=== PATIENT | male | born 1975 | race African-American/Black ===

== ENCOUNTER 2017-02-13 02:02 | Inpatient (IN) | payer OTHER ==
[~2017-02-13] VITALS: Ht 182.9 cm; Wt 87.0 kg
[2017-02-13] VITALS (15 sets, daily range): BP systolic 123–167; BP diastolic 71–104; PULSE 66–151; RESP 18–20; TEMP 98–98.6; O2SAT 97–99
[2017-02-13] MEDS ORDERED: SODIUM CHLOR 0.9% 1000 ML INJ 1,999 ML IV ONE (02:10)
[2017-02-13] MEDS ORDERED: SODIUM CHLOR 0.9% 1000 ML INJ 1,000 ML IV ONE (02:20)
--- NOTE | 2017-02-13 03:47 | RADRPT ---
EXAM DATE/TIME: 02/13/2017 00:00 [facility] COMPARISON: No previous studies available for comparison. INDICATIONS : Altered mental status. RADIATION DOSE: 46.60 CTDIvol (mGy) MEDICAL HISTORY : Unobtainable. SURGICAL HISTORY : Unobtainable. ENCOUNTER: Initial ACUITY: 1 day PAIN SCALE: 0/10 LOCATION: cranial TECHNIQUE: Multiple contiguous axial images were obtained of the head. Using automated exposure control and adj ustment of the mA and/or kV according to patient size, radiation dose was kept as low as reasonably a chievable to obtain optimal diagnostic quality images. FINDINGS: CEREBRUM: The ventricles are normal for age. No evidence of midline shift, mass lesion, hemorrhage or acute in farction. No extra-axial fluid collections are seen. POSTERIOR FOSSA: The cerebellum and brainstem are intact. The 4th ventricle is midline. The cerebellopontine angle i s unremarkable. EXTRACRANIAL: The visualized portion of the orbits is intact. SKULL: The calvaria is intact. No evidence of skull fracture. CONCLUSION: Normal examination. Panfilo Amato Jr., MD on February 13, 2017 at 3:44 Board Certified Radiologist. This report was verified electronically.
[2017-02-13 03:48] LABS: BASOPHIL # 0.1 TH/MM3 (0-0.2); BASOPHIL % 0.3 % (0.0-2.0); EOSINOPHIL # 0.2 TH/MM3 (0-0.4); EOSINOPHIL % 0.7 % (0.0-4.0); HEMATOCRIT 44.3 % (39.0-51.0); LYMPH % 2.1 % (9.0-44.0); LYMPHOCYTE # 0.6 TH/MM3 (1.0-4.8); MEAN CELL VOLUME 91.3 FL (80.0-100.0); MEAN CORPUSCULAR HEMOGLOBIN 30.6 PG (27.0-34.0); MEAN CORPUSCULAR HGB CONC 33.6 % (32.0-36.0); MONO % 5.3 % (0.0-8.0); NEUT % 91.6 % (16.0-70.0); PLATELET COUNT 326 TH/MM3 (150-450); RED BLOOD COUNT 4.85 MIL/MM3 (4.50-5.90); WHITE BLOOD COUNT 30.5 TH/MM3 (4.0-11.0)
--- NOTE | 2017-02-13 03:49 | RADRPT ---
EXAM DATE/TIME: 02/13/2017 03:02 [facility] COMPARISON: No previous studies available for comparison. INDICATIONS : Altered mental status. Weakness. MEDICAL HISTORY : None. SURGICAL HISTORY : None. ENCOUNTER: Initial ACUITY: 1 day PAIN SCORE: 6/10 LOCATION: Bilateral chest FINDINGS: A single view of the chest demonstrates the lungs to be symmetrically aerated without evidence of mas s, infiltrate or effusion. The cardiomediastinal contours are unremarkable. Osseous structures are intact. CONCLUSION: Normal examination. Panfilo Amato Jr., MD on February 13, 2017 at 3:47 Board Certified Radiologist. This report was verified electronically.
[2017-02-13 03:50] LABS: HEMO FLAGS AUTO DIFF
[2017-02-13 04:07] LABS: ALT (GPT) 42 U/L (12-78); ANION GAP 13 MEQ/L (5-15); AST (GOT) 36 U/L (15-37); BICARBONATE 20.6 MEQ/L (21.0-32.0); BLOOD UREA NITROGEN 19 MG/DL (7-18); CHLORIDE 106 MEQ/L (98-107); GLOMERULAR FILTRATION RATE 50 ML/MIN (>89); SODIUM (NA) 140 MEQ/L (136-145)
[2017-02-13 04:11] LABS: POTASSIUM 4.2 MEQ/L (3.5-5.1)
[2017-02-13 04:24] LABS: ALKALINE PHOSPHATASE 105 U/L (45-117); CREATINE KINASE 1248 U/L (39-308); TOTAL BILIRUBIN ADULT 0.3 MG/DL (0.2-1.0)
[2017-02-13] MEDS ORDERED: HYDROmorphone HCL PF 1 MG/ML VIAL IV PUSH ONE (04:30)
--- NOTE | 2017-02-13 04:32 | PD ---
HPI Chief Complaint: Medical Clearance Time Seen by Provider: 02:48 Travel History International Travel<30 days: No Contact w/Intl Traveler<30days: No Traveled to known affect area: No History of Present Illness HPI 41-year-old male arrives by EMS. He smoked an unknown drugs earlier in the day. He was at a traffic. He was approached by police and then an altercation ensued. While in retirement the patient became unresponsive and was brought here. Upon arrival here the heart rate was about 150 the blood pressure was 136/71. He complains of pain in his back and shoulders. It's worse with palpation. PFSH Past Medical History Medical History: Unable to Obtain Past Surgical History Surgical History: Unable to Obtain Social History Alcohol Use: Yes Tobacco Use: Yes Substance Use: Yes Allergies-Medications (Allergen,Severity, Reaction): Coded Allergies: Aspirin (Unverified Allergy, Severe, Heartburn, 02/13/17) Penicillin (Unverified Allergy, Severe, RASH, 02/13/17) Tylenol (Unverified Allergy, Severe, Heartburn, 02/13/17) Reported Meds & Prescriptions Reported Meds & Active Scripts Active No Active Prescriptions or Reported Medications Review of Systems Except as stated in HPI: all other systems reviewed are Neg General / Constitutional: No: Fever Musculoskeletal: Positive: Pain Physical Exam Narrative GENERAL: 41-year-old male well-nourished well-developed mild distress SKIN: Warm and dry. HEAD: Atraumatic. Normocephalic. EYES: Pupils equal and round. No scleral icterus. No injection or drainage. ENT: No nasal bleeding or discharge. Mucous membranes pink and moist. NECK: Trachea midline. No JVD. CARDIOVASCULAR: Regular rate and rhythm. RESPIRATORY: No accessory muscle use. Clear to auscultation. Breath sounds equal bilaterally. GASTROINTESTINAL: Abdomen soft, non-tender, nondistended. Hepatic and splenic margins not palpable. MUSCULOSKELETAL: Extremities without clubbing, cyanosis, or edema. No obvious deformities. Ecchymosis and swelling about the left lateral parathoracic musculature with overlying erythema. NEUROLOGICAL: Awake and alert. No obvious cranial nerve deficits. Motor grossly within normal limits. Five out of 5 muscle strength in the arms and legs. Normal speech. PSYCHIATRIC: Appropriate mood and affect; insight and judgment normal. Data Data Last Documented VS Vital Signs Date Time Temp Pulse Resp B/P Pulse Ox O2 Delivery O2 Flow Rate FiO2 02/13/17 03:04 99 Room Air 02/13/17 02:05 98.5 151 18 136/71 Vital signs reviewed Orders Sodium Chlor 0.9% 1000 Ml Inj (Ns 1000 M (02/13/17 02:20) Ct Brain W/O Iv Contrast(Rout) (02/13/17 ) Chest, Single Ap (02/13/17 ) Creatine Kinase (Cpk) (02/13/17 02:30) Comprehensive Metabolic Panel (02/13/17 02:30) Troponin I (02/13/17 02:30) Complete Blood Count With Diff (02/13/17 02:30) Hydromorphone Pf Inj (Dilaudid Pf Inj) (02/13/17 04:30) CKMB (02/13/17 02:30) CKMB% (02/13/17 02:30) Sodium Chlor 0.9% 1000 Ml Inj (Ns 1000 M (02/13/17 02:10) Urinalysis - C+S If Indicated (02/13/17 05:06) Drug Screen, Random Urine (02/13/17 05:06) Admit To Inpatient (02/13/17 ) Vital Signs (Adult) Q4H (02/13/17 05:06) Activity Oob With Assistance (02/13/17 05:06) Car Icer / Telemetry .CONTINUOUS (02/13/17 05:06) Intake + Output SELENE.QSHIFT (02/13/17 05:06) Diet Regular Basic (02/13/17 Breakfast) Sodium Chlor 0.9% 1000 Ml Inj (Ns 1000 M (02/13/17 05:06) Sodium Chloride 0.9% Flush (Ns Flush) (02/13/17 05:15) Sodium Chloride 0.9% Flush (Ns Flush) (02/13/17 09:00) Ondansetron Inj (Zofran Inj) (02/13/17 05:15) Bisacodyl Supp (Dulcolax Supp) (02/13/17 05:15) Comprehensive Metabolic Panel (02/14/17 06:00) Complete Blood Count With Diff (02/14/17 06:00) Creatine Kinase (Cpk) (02/13/17 08:00) Creatine Kinase (Cpk) (02/13/17 14:00) Troponin I (02/13/17 08:00) Troponin I (02/13/17 14:00) Scd Bilateral/Knee High SELENE.BID (02/13/17 05:06) Darci Bilateral/Knee High SELENE.QSHIFT (02/13/17 05:06) Morphine Inj (Morphine Inj) (02/13/17 05:15) Oxycodone (Roxicodone) (02/13/17 05:15) Inpatient Certification (02/13/17 ) Labs Laboratory Tests Test 02/13/17 02:30 White Blood Count 30.5 TH/MM3 Red Blood Count 4.85 MIL/MM3 Hemoglobin 14.9 GM/DL Hematocrit 44.3 % Mean Corpuscular Volume 91.3 FL Mean Corpuscular Hemoglobin 30.6 PG Mean Corpuscular Hemoglobin 33.6 % Concent Red Cell Distribution Width 14.0 % Platelet Count 326 TH/MM3 Mean Platelet Volume 8.6 FL Neutrophils (%) (Auto) 91.6 % Lymphocytes (%) (Auto) 2.1 % Monocytes (%) (Auto) 5.3 % Eosinophils (%) (Auto) 0.7 % Basophils (%) (Auto) 0.3 % Neutrophils # (Auto) 28.0 TH/MM3 Lymphocytes # (Auto) 0.6 TH/MM3 Monocytes # (Auto) 1.6 TH/MM3 Eosinophils # (Auto) 0.2 TH/MM3 Basophils # (Auto) 0.1 TH/MM3 CBC Comment AUTO DIFF Differential Total Cells 100 Counted Neutrophils % (Manual) 91 % Band Neutrophils % 1 % Lymphocytes % 4 % Monocytes % 2 % Neutrophils # (Manual) 28.7 TH/MM3 Metamyelocytes 2 % Nucleated Red Blood Cells 1 /100 WBC Differential Comment FINAL DIFF MANUAL Platelet Estimate NORMAL Platelet Morphology Comment NORMAL Sodium Level 140 MEQ/L Potassium Level 4.2 MEQ/L Chloride Level 106 MEQ/L Carbon Dioxide Level 20.6 MEQ/L Anion Gap 13 MEQ/L Blood Urea Nitrogen 19 MG/DL Creatinine 1.81 MG/DL Estimat Glomerular Filtration 50 ML/MIN Rate Random Glucose 82 MG/DL Calcium Level 9.5 MG/DL Total Bilirubin 0.3 MG/DL Aspartate Amino Transf 36 U/L (AST/SGOT) Alanine Aminotransferase 42 U/L (ALT/SGPT) Alkaline Phosphatase 105 U/L Total Creatine Kinase 1248 U/L Creatine Kinase MB 8.4 NG/ML Creatine Kinase MB % 0.7 % Troponin I 0.72 NG/ML Total Protein 8.2 GM/DL Albumin 4.1 GM/DL MDM Medical Decision Making Medical Screen Exam Complete: Yes Emergency Medical Condition: Yes Differential Diagnosis NSTEMI, unstable angina, coronary vasospasm, PE, PTX, aortic dissection, pericarditis, myocarditis, endocarditis, PNA, esophageal disease, aneurysm, musculoskeletal etiologies, anxiety, cocaine/sympathomimetic abuse Narrative Course CBC & BMP Diagram 02/13/17 02:30 Total creatinine kinase 1248 Troponin 0.72 EKG: Sinus tachycardia, HR 145 CXR: [facility] Head CT: No acute disease There is a elevation of troponin. The patient has elevated total creatinine kinase. Admission for serial enzymes and EKGs IV fluids. Discussed with Dr. Harrison. Diagnosis Primary Impression: Elevated troponin Additional Impression: Rhabdomyolysis Qualified Code: M62.82 - Non-traumatic rhabdomyolysis Admitting Information Admitting Physician Requests: Admit Scripts No Active Prescriptions or Reported Meds Scot Lowery MD Feb 13, 2017 04:32
[2017-02-13 04:39] LABS: CKMB 8.4 NG/ML (0.5-3.6)
[2017-02-13] MEDS ORDERED: SODIUM CHLORIDE 0.9% FLUSH 10 ML FLUSH IV FLUSH PRN (05:15)
[2017-02-13] MEDS ORDERED: ONDANSETRON HCL 4 MG/2 ML VIAL IVP PRN (05:15)
[2017-02-13] MEDS ORDERED: LORazepam 2 MG/ML VIAL IV PUSH PRN (05:15)
[2017-02-13] MEDS ORDERED: BISACODYL 10 MG SUPP PR PRN (05:15)
--- NOTE | 2017-02-13 05:22 | HHI.HP ---
[facility] Service [facility] Primary Care Physician No Primary Care Physician Admission Diagnosis Diagnoses: (1) Elevated troponin Diagnosis: Principal (2) Rhabdomyolysis Diagnosis: Principal (3) VALERIE (acute kidney injury) Diagnosis: Principal (4) Substance abuse Diagnosis: Principal Travel History International Travel<30 Days: No Contact w/Intl Traveler <30 Da: No Traveled to Known Affected Are: No History of Present Illness This is a 41-year-old male with no reported PMH was brought to the ER by EMS under Police Custody after becoming unresponsive while in [facility]. Per report, Police called as pt running into traffic, admitted to smoking unknown substance at approx 2200, was arrested and taken to [facility] at that time. While in [facility], pt had become unresponsive. Upon arrival, noted to be awake and alert, HR 150's, BP 136/71, O2 sat 99% on RA, Afebrile. Pt not cooperating with questions. WBC 30.5. Creatinine 1.81, no previous labs for comparison. CPK 1248. Troponin 0.72. EKG with no acute ischemia. CXR with no acute findings. CT Head negative. Review of Systems Except as stated in HPI: all other systems reviewed are Neg ROS: 14 point review of systems otherwise negative. Past Family Social History Past Medical History PMH: None Past Surgical History PAST SURGICAL HISTORY: Denies Allergies: Coded Allergies: Aspirin (Unverified Allergy, Severe, Heartburn, 02/13/17) Penicillin (Unverified Allergy, Severe, RASH, 02/13/17) Tylenol (Unverified Allergy, Severe, Heartburn, 02/13/17) Family History PAST FAMILY HISTORY: Reviewed. No h/o DM or CAD Social History PAST SOCIAL HISTORY: Positive for alcohol, unable to quantify. Positive for tobacco. Positive for substance abuse. Physical Exam Vital Signs Vital Signs Date Time Temp Pulse Resp B/P Pulse Ox O2 Delivery O2 Flow Rate FiO2 02/13/17 03:04 99 Room Air 02/13/17 02:05 98.5 151 18 136/71 99 Physical Exam PE: GENERAL: Middle-aged black male in no acute distress, sitting up at edge of stretcher. Police at bedside. Uncooperative with questions. HEENT: PERRLA, EOMI. No scleral icterus or conjunctival pallor. No lid lag or facial droop. CARDIOVASCULAR: Regular rate and rhythm. No obvious murmurs to auscultation. No chest tenderness to palpation. RESPIRATORY: No obvious rhonchi or wheezing. Clear to auscultation. Breath sounds equal bilaterally. GASTROINTESTINAL: Abdomen soft, non-tender, nondistended. BS normal. MUSCULOSKELETAL: Extremities without clubbing, cyanosis, or edema. No obvious deformities. NEUROLOGICAL: Awake, alert. No focal neurologic deficits. Moving both upper and lower extremities spontaneously. Laboratory Laboratory Tests Test 02/13/17 02:30 White Blood Count 30.5 Red Blood Count 4.85 Hemoglobin 14.9 Hematocrit 44.3 Mean Corpuscular Volume 91.3 Mean Corpuscular Hemoglobin 30.6 Mean Corpuscular Hemoglobin 33.6 Concent Red Cell Distribution Width 14.0 Platelet Count 326 Mean Platelet Volume 8.6 Neutrophils (%) (Auto) 91.6 Lymphocytes (%) (Auto) 2.1 Monocytes (%) (Auto) 5.3 Eosinophils (%) (Auto) 0.7 Basophils (%) (Auto) 0.3 Neutrophils # (Auto) 28.0 Lymphocytes # (Auto) 0.6 Monocytes # (Auto) 1.6 Eosinophils # (Auto) 0.2 Basophils # (Auto) 0.1 CBC Comment AUTO DIFF Sodium Level 140 Potassium Level 4.2 Chloride Level 106 Carbon Dioxide Level 20.6 Anion Gap 13 Blood Urea Nitrogen 19 Creatinine 1.81 Estimat Glomerular Filtration 50 Rate Random Glucose 82 Calcium Level 9.5 Total Bilirubin 0.3 Aspartate Amino Transf 36 (AST/SGOT) Alanine Aminotransferase 42 (ALT/SGPT) Alkaline Phosphatase 105 Total Creatine Kinase 1248 Creatine Kinase MB 8.4 Creatine Kinase MB % 0.7 Troponin I 0.72 Total Protein 8.2 Albumin 4.1 Result Diagram: 02/13/1722902/13/17229 Assessment and Plan Problem List: (1) Elevated troponin ICD Code: R74.8 Status: Acute (2) Rhabdomyolysis ICD Code: M62.82 Status: Acute (3) VALERIE (acute kidney injury) ICD Code: N17.9 Status: Acute (4) Substance abuse ICD Code: F19.10 Status: Acute Assessment and Plan A/P: 1. Elevated Trop: Trop 0.72, likely related to drug abuse, unlikely to be secondary to cardiac disease. Admit to [facility], telemetry, check serial trop. No ASA secondary to Allergy, no B-flor until Urine Drug Screen resulted. No c/ o chest pain. Ativan prn if needed. 2. Rhabdomyolysis: Likely related to drug abuse/dehydration. CPK 1248. Check U/a and Urine Drug Screen. IVF for hydration. Check serial CPK for trend. 3. VALERIE: Creatinine 1.80, no previous labs for comparison. U/a pending. IVF for hydration, repeat labs in am. 4. Substance Abuse: Pt uncooperative w/ questions, did admit to smoking unknown drug earlier this evening. Urine Drug Screen pending. Will follow. Ativan prn. 5. DVT Prophylaxis: SCD/Teds. 6. Social work for d/c planning as needed 7. Case discussed w/ ER physician at length. Physician Certification 2 Midnight Certification Type: Admission for Inpatient Services Order for Inpatient Services The services are ordered in accordance with Medicare regulations or non- Medicare payer requirements, as applicable. In the case of services not specified as inpatient-only, they are appropriately provided as inpatient services in accordance with the 2-midnight benchmark. Estimated LOS (days): 2 days is the estimated time the patient will need to remain in the hospital, assuming treatment plan goals are met and no additional complications. Post-Hospital Plan: Not yet determined Problem Qualifiers (1) Rhabdomyolysis: Qualified Code: M62.82 - Non-traumatic rhabdomyolysis Josette Harrison MD Feb 13, 2017 05:21
[2017-02-13] MEDS: SODIUM CHLOR 0.9% 1000 ML INJ 1,000 ML IV SCH ×3 (06:03→18:26)
[2017-02-13 06:44] LABS: BANDS 1 % (0-6); CORRECTED NUCLEATED RBC 1 /100 WBC (0-0); METAMYELOCYTES 2 % (0-1); NEUTROPHIL # MANUAL DIFF 28.7 TH/MM3 (1.8-7.7); POLYS (SEG NEUTROPHILS) 91 % (16-70); WBC DIFF SAMPLE 100
[2017-02-13 06:45] LABS: PLATELET ESTIMATE SMEAR NORMAL (NORMAL); PLATELET MORPHOLOGY NORMAL (NORMAL); SCAN/DIFF FINAL DIFF MANUAL
[2017-02-13 07:20] LABS: GLUCOSE,URINE NEG (NEG); KETONE, URINE NEG (NEG); PH, URINE 5.5 (5.0-8.5); URINE COLOR LIGHT-YELLOW (YELLW/STRAW)
[2017-02-13 07:21] LABS: BLOOD, URINE LARGE (NEG); COMMENT (UR) CULT NOT INDICATED; CULTURE IF INDICATED CULT NOT INDICATED; MUCUS URINE FEW /lpf (OCC); NITRITE,URINE NEG (NEG); SQUAMOUS EPITHELIAL CELL URINE <1 /hpf (0-5)
[2017-02-13 07:37] LABS: AMPHETAMINE, URINE NEG (NEG); BARBITURATES, URINE NEG (NEG); COCAINE, URINE NEG (NEG)
[2017-02-13] MEDS: SODIUM CHLORIDE 0.9% FLUSH 10 ML FLUSH IV FLUSH SCH ×2 (09:00→21:00)
[2017-02-13 11:33] LABS: CKMB 182.2 NG/ML (0.5-3.6)
--- NOTE | 2017-02-13 13:44 | MB ---
cc: CHLOE OCAMPO DATE OF CONSULTATION: 02/13/2017. HISTORY OF PRESENT ILLNESS: Mr. Haddad is a 41-year-old black male with a history of substance abuse. He was brought by the police after he became unresponsive in long term. He was arrested after he was running into traffic. He stated he was smoking an unknown substance last night. He became unresponsive in long term. His troponin is mildly elevated. His EKG was unremarkable. His CT of the head was negative. He complains of mild left parasternal atypical chest discomfort and mild shortness of breath. PAST MEDICAL HISTORY: His past medical history is negative for hypertension, dyslipidemia, diabetes mellitus, or coronary artery disease. MEDICATIONS: None. ALLERGIES: 1. PENICILLIN. 2. ASPIRIN. 3. TYLENOL. SOCIAL HISTORY: The patient is a smoker. He uses drugs. He also drinks alcohol. FAMILY HISTORY: Family history is negative for heart disease. REVIEW OF SYSTEMS: The review of systems is otherwise negative. PHYSICAL EXAMINATION: VITAL SIGNS: Blood pressure 161/83, pulse 87 and regular. HEAD, EYES, EARS, NOSE, THROAT: Negative. NECK: 2+ carotid upstrokes, no bruits. LUNGS: Clear. HEART: Regular with no murmurs, rubs or gallops. ABDOMEN: Abdomen soft. No bruits. EXTREMITIES: Without edema. 2+ distal pulses. NEUROLOGIC: Grossly intact. EKGS: EKG was reviewed and showed sinus tachycardia, pulsus alternans, incomplete right bundle-branch block, small inferior T-waves and no acute S-T-T changes. LABS: Hemoglobin 14.9. Potassium 4.2. Creatinine 1.8. CK 1248 and 16,198. Troponin 0.72, 1.31. CK-MB index 0.7 and 1.1. DIAGNOSIS: 1. Altered mental status. 2. Drug abuse. 3. Mildly abnormal troponin. 4. Atypical chest pain. 5. Rhabdomyolysis. 6. Acute kidney injury. 7. Smoking. DISPOSITION: 1. Mr. Haddad will be monitored on telemetry. 2. We will obtain echocardiogram to evaluate his left ventricular function. 3. We will monitor his renal function. 4. We will obtain serial enzymes and EKGs. I will follow him for cardiology during his hospitalization. MD SLADE Cevallos/TRISTEN /1:14 PM /1:30 PM SHAAN
[2017-02-13] MEDS: MORPHINE SULFATE 4 MG/ML INJ IV PRN (14:24)
--- NOTE | 2017-02-13 15:36 | EKG ---
Date Performed: 02/13/2017 Time Performed: 02:12:05 PTAGE: 41 years EKG: SINUS TACHYCARDIA, POSSIBLE ATRIAL FLUTTER BORDERLINE RIGHT AXIS DEVIATION INCOMPLETE RIGHT BUNDLE BRANCH BLOCK ABNORMAL RHYTHM ECG PREVIOUS TRACING : 02/05/2017 18.44 DOCTOR: Zaheer Dale Interpretating Date/Time 02/13/2017 15:36:04
[2017-02-13 18:08] LABS: CKMB 196.8 NG/ML (0.5-3.6)
[2017-02-14] VITALS (26 sets, daily range): BP systolic 130–162; BP diastolic 52–98; PULSE 60–80; RESP 17–19; TEMP 97.6–98.9; O2SAT 95–99
[2017-02-14] MEDS: MORPHINE SULFATE 4 MG/ML INJ IV PRN (00:53)
[2017-02-14] MEDS: SODIUM CHLOR 0.9% 1000 ML INJ 1,000 ML IV SCH ×4 (01:06→20:13)
[2017-02-14 05:12] LABS: AUTOMATED NEUTROPHIL # 8.6 TH/MM3 (1.8-7.7); BASOPHIL # 0.1 TH/MM3 (0-0.2); BASOPHIL % 0.4 % (0.0-2.0); EOSINOPHIL # 0.7 TH/MM3 (0-0.4); EOSINOPHIL % 5.5 % (0.0-4.0); HEMATOCRIT 38.2 % (39.0-51.0); HEMO FLAGS DIFF FINAL; LYMPH % 18.3 % (9.0-44.0); LYMPHOCYTE # 2.4 TH/MM3 (1.0-4.8); MEAN CELL VOLUME 90.3 FL (80.0-100.0); MEAN CORPUSCULAR HEMOGLOBIN 30.6 PG (27.0-34.0); MEAN CORPUSCULAR HGB CONC 33.8 % (32.0-36.0); MONO % 9.9 % (0.0-8.0); NEUT % 65.9 % (16.0-70.0); PLATELET COUNT 261 TH/MM3 (150-450); RED BLOOD COUNT 4.23 MIL/MM3 (4.50-5.90); RED CELL DISTRIBUTION WIDTH 13.8 % (11.6-17.2); WHITE BLOOD COUNT 13.1 TH/MM3 (4.0-11.0)
[2017-02-14 05:25] LABS: ALKALINE PHOSPHATASE 65 U/L (45-117); ALT (GPT) 121 U/L (12-78); ANION GAP 10 MEQ/L (5-15); AST (GOT) 347 U/L (15-37); BICARBONATE 28.4 MEQ/L (21.0-32.0); BLOOD UREA NITROGEN 11 MG/DL (7-18); CHLORIDE 105 MEQ/L (98-107); GLOMERULAR FILTRATION RATE 106 ML/MIN (>89); POTASSIUM 3.4 MEQ/L (3.5-5.1); SODIUM (NA) 143 MEQ/L (136-145); TOTAL BILIRUBIN ADULT 0.4 MG/DL (0.2-1.0)
--- NOTE | 2017-02-14 07:38 | HHI.PR ---
Subjective Remarks Complaints of muscle tenderness bilateral shoulders. No chest pain. No n/v/d/c. Denies sob, lightheadedness, nausea, diaphoresis. Objective Vitals Vital Signs Date Time Temp Pulse Resp B/P Pulse Ox O2 Delivery O2 Flow Rate FiO2 02/14/17 06:23 66 02/14/17 05:00 66 02/14/17 04:00 64 02/14/17 03:00 97.9 64 18 135/52 99 02/14/17 03:00 62 02/14/17 02:00 64 02/14/17 01:00 68 02/14/17 00:00 66 02/13/17 23:00 78 02/13/17 22:00 84 02/13/17 21:00 76 02/13/17 20:00 98.0 77 18 123/83 99 02/13/17 20:00 76 02/13/17 19:00 70 02/13/17 16:00 66 02/13/17 15:00 73 02/13/17 15:00 98.6 82 20 139/89 98 02/13/17 15:00 18 02/13/17 14:00 84 02/13/17 13:00 78 02/13/17 12:00 82 02/13/17 11:00 98.4 87 20 161/83 98 02/13/17 11:00 84 02/13/17 10:00 88 02/13/17 10:00 94 02/13/17 08:45 98.2 93 20 157/104 02/13/17 08:12 98.0 97 18 167/88 97 Room Air 02/13/17 08:12 96 97 Room Air I/O 02/13/17 02/13/17 02/13/17 02/14/17 02/14/17 02/14/17 06:59 14:59 22:59 06:59 14:59 22:59 Intake Total 700 ml Balance 700 ml Intake Oral 700 ml IV Total 0 ml # Voids 4 # Bowel Movements 0 Result Diagram: 02/14/17 0443 02/14/17 0443 Imaging Last Impressions Head CT 02/13/17 0000 Signed Impressions: Service Date/Time: Monday, February 13, 2017 00:00 - CONCLUSION: Normal examination. Panfilo Amtao Jr., MD Chest X-Ray 02/13/17 0000 Signed Impressions: Service Date/Time: Monday, February 13, 2017 03:02 - CONCLUSION: Normal examination. Panfilo Amato Jr., MD Objective Remarks GENERAL: Middle-aged AA male in no acute distress, well nourished, well developed. HEENT: PERRLA, EOMI. No scleral icterus or conjunctival pallor. No lid lag or facial droop. CARDIOVASCULAR: Regular rate and rhythm. No obvious murmurs to auscultation. No chest tenderness to palpation. RESPIRATORY: No obvious rhonchi or wheezing. Clear to auscultation. Breath sounds equal bilaterally. GASTROINTESTINAL: Abdomen soft, non-tender, nondistended. BS normal. MUSCULOSKELETAL: BL shoulder pain, decreased ROM bilateral shoulders. Extremities without clubbing, cyanosis, or edema. No obvious deformities. NEUROLOGICAL: Awake, alert. No focal neurologic deficits. Moving both upper and lower extremities spontaneously. A/P Problem List: (1) Elevated troponin ICD Code: R74.8 Status: Acute (2) Rhabdomyolysis ICD Code: M62.82 Status: Acute (3) VALERIE (acute kidney injury) ICD Code: N17.9 Status: Acute (4) Substance abuse ICD Code: F19.10 Status: Acute Assessment and Plan Elevated Trop: Trop 0.72, likely related to drug abuse, unlikely to be secondary to cardiac disease. Admit to [facility], telemetry, check serial trop. No c/o chest pain. Ativan prn if needed. Consult cardiology seen by Dr Clark appreciate recommendations. Plan for 2D ECHO Rhabdomyolysis: Likely related to drug abuse/dehydration. CPK 1248. Check U/ a and Urine Drug Screen. IVF for hydration. Check serial CPK for trend. Troponins trending up, however CKMB ration is normal, likely replated to rhabdo , will ask cardiology for evaluation and clearance Bilateral shoulder pain, decreased ROM will do X rays. Will consult OT. VALERIE: Creatinine 1.80 on admission, no previous labs for comparison. U/A no signs of infection. IVF for hydration, repeat labs in am. Substance Abuse: Pt uncooperative w/ questions, did admit to smoking unknown drug BENDING ROLL HAND. Urine Drug Screen + marijuana. Ativan prn. DVT Prophylaxis: SCD/Teds. Case management for d/c planning as needed Discussed with the patient, nurse Problem Qualifiers (1) Rhabdomyolysis: Qualified Code: M62.82 - Non-traumatic rhabdomyolysis Vy Shah MD Feb 14, 2017 07:38
[2017-02-14] MEDS: SODIUM CHLORIDE 0.9% FLUSH 10 ML FLUSH IV FLUSH SCH ×2 (08:13→20:12)
[2017-02-14 08:51] LABS: CKMB 87.7 NG/ML (0.5-3.6)
[2017-02-14] MEDS ORDERED: POTASSIUM CHLORIDE 10 MEQ CONTROLLED RELEASE TAB PO ONE (09:30)
--- NOTE | 2017-02-14 13:47 | PD.CARD.PN ---
Subjective Subjective Remarks No CP or SOB, c/o bilateral shoulder pain Objective Medications Current Medications Medications (Trade) Dose Ordered Sig/Mo Route Start Time Stop Time Status Last Admin (NS 1000 ml Inj) 1,000 ml @ 150 mls/hr Q6H40M IV 02/13/17 05:06 02/14/17 09:54 (NS Flush) 2 ml UNSCH PRN IV FLUSH 02/13/17 05:15 (NS Flush) 2 ml BID IV FLUSH 02/13/17 09:00 02/13/17 21:00 (Zofran Inj) 4 mg Q6H PRN IVP 02/13/17 05:15 02/13/17 14:23 (Dulcolax Supp) 10 mg DAILY PRN MO 02/13/17 05:15 (Morphine Inj) 1 mg Q3H PRN IV 02/13/17 05:15 02/14/17 00:53 (Roxicodone) 5 mg Q4H PRN PO 02/13/17 05:15 02/14/17 11:12 (Ativan Inj) 1 mg Q2H PRN IV PUSH 02/13/17 05:15 Vital Signs / I&O Vital Signs Date Time Temp Pulse Resp B/P Pulse Ox O2 Delivery O2 Flow Rate FiO2 02/14/17 10:00 138/83 02/14/17 07:00 98.3 73 19 162/98 95 02/14/17 06:23 66 02/14/17 05:00 66 02/14/17 04:00 64 02/14/17 03:00 97.9 64 18 135/52 99 02/14/17 03:00 62 02/14/17 02:00 64 02/14/17 01:00 68 02/14/17 00:00 66 02/13/17 23:00 78 02/13/17 22:00 84 02/13/17 21:00 76 02/13/17 20:00 98.0 77 18 123/83 99 02/13/17 20:00 76 02/13/17 19:00 70 02/13/17 16:00 66 02/13/17 15:00 73 02/13/17 15:00 98.6 82 20 139/89 98 02/13/17 15:00 18 02/13/17 14:00 84 I/O 02/13/17 02/13/17 02/13/17 02/14/17 02/14/17 02/14/17 07:00 15:00 23:00 07:00 15:00 23:00 Intake Total 700 ml Balance 700 ml Intake Oral 700 ml IV Total 0 ml # Voids 4 # Bowel Movements 0 Physical Exam GENERAL: SKIN: Warm and dry. HEAD: Normocephalic. EYES: No scleral icterus. No injection or drainage. NECK: Supple, trachea midline. No JVD or lymphadenopathy. CARDIOVASCULAR: Regular rate and rhythm without murmurs, gallops, or rubs. RESPIRATORY: Breath sounds equal bilaterally. No accessory muscle use. GASTROINTESTINAL: Abdomen soft, non-tender, nondistended. MUSCULOSKELETAL: No cyanosis, or edema. BACK: Nontender without obvious deformity. No CVA tenderness. Laboratory Laboratory Tests Test 02/13/17 02/14/17 15:11 04:43 Total Creatine Kinase 16136 U/L 12378 U/L Creatine Kinase MB 196.8 NG/ML 87.7 NG/ML Creatine Kinase MB % 0.7 % 0.5 % Troponin I 0.91 NG/ML White Blood Count 13.1 TH/MM3 Red Blood Count 4.23 MIL/MM3 Hemoglobin 12.9 GM/DL Hematocrit 38.2 % Mean Corpuscular Volume 90.3 FL Mean Corpuscular Hemoglobin 30.6 PG Mean Corpuscular Hemoglobin 33.8 % Concent Red Cell Distribution Width 13.8 % Platelet Count 261 TH/MM3 Mean Platelet Volume 7.9 FL Neutrophils (%) (Auto) 65.9 % Lymphocytes (%) (Auto) 18.3 % Monocytes (%) (Auto) 9.9 % Eosinophils (%) (Auto) 5.5 % Basophils (%) (Auto) 0.4 % Neutrophils # (Auto) 8.6 TH/MM3 Lymphocytes # (Auto) 2.4 TH/MM3 Monocytes # (Auto) 1.3 TH/MM3 Eosinophils # (Auto) 0.7 TH/MM3 Basophils # (Auto) 0.1 TH/MM3 CBC Comment DIFF FINAL Differential Comment Sodium Level 143 MEQ/L Potassium Level 3.4 MEQ/L Chloride Level 105 MEQ/L Carbon Dioxide Level 28.4 MEQ/L Anion Gap 10 MEQ/L Blood Urea Nitrogen 11 MG/DL Creatinine 0.95 MG/DL Estimat Glomerular Filtration 106 ML/MIN Rate Random Glucose 105 MG/DL Calcium Level 8.0 MG/DL Total Bilirubin 0.4 MG/DL Aspartate Amino Transf 347 U/L (AST/SGOT) Alanine Aminotransferase 121 U/L (ALT/SGPT) Alkaline Phosphatase 65 U/L Total Protein 6.2 GM/DL Albumin 3.1 GM/DL Imaging Last Impressions Head CT 02/13/17 0000 Signed Impressions: Service Date/Time: Monday, February 13, 2017 00:00 - CONCLUSION: Normal examination. Panfilo Amato Jr., MD Chest X-Ray 02/13/17 0000 Signed Impressions: Service Date/Time: Monday, February 13, 2017 03:02 - CONCLUSION: Normal examination. Panfilo Amato Jr., MD Assessment and Plan Problem List: (1) Substance abuse (2) Rhabdomyolysis (3) VALERIE (acute kidney injury) (4) Elevated troponin (5) Chest pain Assessment and Plan No recurrent CP or SOB. No new cardiac issues. Rhythm stable. Check echo today. Problem Qualifiers (1) Rhabdomyolysis: Qualified Code: M62.82 - Non-traumatic rhabdomyolysis Andrew Hoffman MD Feb 14, 2017 13:47
--- NOTE | 2017-02-14 14:42 | RADRPT ---
EXAM DATE/TIME: 02/14/2017 14:13 [facility] COMPARISON: No previous studies available for comparison. INDICATIONS : Right shoulder pain MEDICAL HISTORY : None. SURGICAL HISTORY : None. ENCOUNTER: Initial ACUITY: 1 day PAIN SCORE: 10/10 LOCATION: Right upper extremity FINDINGS: Two view examination of the right shoulder demonstrates no evidence of fracture or dislocation. The glenohumeral and acromioclavicular joints are maintained. Bony mineralization is normal. CONCLUSION: Negative for acute process. Cheng Larios MD FACR on February 14, 2017 at 14:40 Board Certified Radiologist. This report was verified electronically.
--- NOTE | 2017-02-14 14:42 | RADRPT ---
EXAM DATE/TIME: 02/14/2017 14:15 [facility] COMPARISON: No previous studies available for comparison. INDICATIONS : Left shoulder pain MEDICAL HISTORY : None. SURGICAL HISTORY : None. ENCOUNTER: Initial ACUITY: 1 day PAIN SCORE: 8/10 LOCATION: Left upper extremity FINDINGS: Two view examination of the left shoulder demonstrates no evidence of fracture or dislocation. The g lenohumeral and acromioclavicular joints are maintained. Bony mineralization is normal. CONCLUSION: Negative for an acute process. Cheng Larios MD FACR on February 14, 2017 at 14:40 Board Certified Radiologist. This report was verified electronically.
--- NOTE | 2017-02-14 17:37 | EC ---
Study Study Date:02/14/2017 STUDY CONCLUSIONS SUMMARY - Left ventricle: The cavity size was normal. There was asymmetric hypertrophy of the anterior wall. Systolic function was normal. The estimated ejection fraction was in the range of 55% to 60%. Left ventricular diastolic function parameters were in a normal range. - Pericardium, extracardiac: A trivial pericardial effusion was identified. There was no evidence of hemodynamic compromise. If LV function is below 40, please consider prescribing an ACEI or ARB or document rationale for non-use. PROCEDURE DATA STUDY STATUS: Elective. Procedure: Transthoracic echocardiography. Image quality was good. Scanning was performed from the parasternal, apical, and subcostal acoustic windows. Study completion: The patient tolerated the procedure well. Transthoracic echocardiography. M-mode, complete 2D, complete spectral Doppler, and color Doppler. Patient status: Inpatient. CARDIAC ANATOMY LEFT VENTRICLE: The cavity size was normal. There was asymmetric hypertrophy of the anterior wall. Systolic function was normal. The estimated ejection fraction was in the range of 55% to 60%. Left ventricular diastolic function parameters were in a normal range. AORTIC VALVE: Probably trileaflet, buta bicuspid morphology cannot be excluded. Doppler: There was no stenosis. No significant regurgitation. MITRAL VALVE: The valve appears to be grossly normal. Doppler: There was no evidence for stenosis. No significant regurgitation. Peak gradient: 2mm Hg (D). LEFT ATRIUM: The atrium was normal in size. PULMONIC VALVE: Not well visualized. Doppler: There was no evidence for stenosis. No significant regurgitation. TRICUSPID VALVE: The valve appears to be grossly normal. Doppler: There was no evidence for stenosis. Trace to mild regurgitation. PERICARDIUM: A trivial pericardial effusion was identified. There was no evidence of hemodynamic compromise. BASIC MEASUREMENTS ADULT Normal Left ventricle LV internal dimension, ED, chordal level, *41.9 mm 43-52 PLAX LV internal dimension, ES, chordal level, 32.8 mm 23-38 PLAX Fractional shortening, chordal level, PLAX *22 % >29 LV posterior wall thickness, ED 9.16 mm IVS/LVPW ratio, ED *1.48 <1.3 Ventricular septum Septal thickness, ED 13.6 mm Aortic valve Leaflet separation 22 mm 15-26 Right ventricle RV internal dimension, ED, PLAX 34 mm 19-38 BASIC MEASUREMENTS ADULT Normal Aortic valve Leaflet separation 22 mm 15-26 Aorta Root diameter, ED 34 mm 20-37 Left atrium Anterior-posterior dimension, ES 38 mm 19-40 LA/aortic root ratio 1.12 DOPPLER MEASUREMENTS ADULT Normal Main pulmonary artery Pressure, S 29 mm Hg =30 Mitral valve Peak E-wave velocity 71.1 cm/s Peak A-wave velocity 47.4 cm/s Peak gradient, D 2 mm Hg Peak E/A ratio 1.5 Tricuspid valve Regurgitant peak velocity 217 cm/s Peak RV-RA gradient, S 19 mm Hg Systemic veins Estimated CVP 10 mm Hg Right ventricle RV pressure, S 29 mm Hg <30 LEGEND: Mean values are shown as u=mean value. Asterisk (*) hameed values outside specified normal range. Prepared and signed by Mickey Lowery [id number]
[2017-02-15] VITALS (16 sets, daily range): BP systolic 112–134; BP diastolic 75–94; PULSE 60–84; RESP 16–18; TEMP 97.3–98.6; O2SAT 97–98
[2017-02-15] MEDS: SODIUM CHLOR 0.9% 1000 ML INJ 1,000 ML IV SCH ×3 (00:16→10:12)
[2017-02-15 06:02] LABS: BASOPHIL # 0.1 TH/MM3 (0-0.2); BASOPHIL % 0.5 % (0.0-2.0); EOSINOPHIL # 0.7 TH/MM3 (0-0.4); EOSINOPHIL % 6.5 % (0.0-4.0); HEMATOCRIT 36.6 % (39.0-51.0); HEMO FLAGS DIFF FINAL; LYMPH % 22.6 % (9.0-44.0); LYMPHOCYTE # 2.6 TH/MM3 (1.0-4.8); MEAN CELL VOLUME 92.4 FL (80.0-100.0); MEAN CORPUSCULAR HEMOGLOBIN 29.7 PG (27.0-34.0); MEAN CORPUSCULAR HGB CONC 32.1 % (32.0-36.0); MONO % 9.5 % (0.0-8.0); NEUT % 60.9 % (16.0-70.0); PLATELET COUNT 231 TH/MM3 (150-450); RED BLOOD COUNT 3.96 MIL/MM3 (4.50-5.90); RED CELL DISTRIBUTION WIDTH 13.9 % (11.6-17.2); WHITE BLOOD COUNT 11.4 TH/MM3 (4.0-11.0)
--- NOTE | 2017-02-15 07:15 | HHI.PR ---
Subjective Remarks In nad. Says shoulder pain is improving. He also has some pain in his legs. No n /v/d/c. Denies chest pain, sob. No fever or chills. Objective Vitals Vital Signs Date Time Temp Pulse Resp B/P Pulse Ox O2 Delivery O2 Flow Rate FiO2 02/15/17 06:00 64 02/15/17 05:43 16 02/15/17 05:00 84 02/15/17 04:00 97.3 64 18 121/75 98 02/15/17 04:00 69 02/15/17 03:00 66 02/15/17 02:00 66 02/15/17 01:00 62 02/15/17 00:00 98.6 66 16 134/94 98 02/15/17 00:00 62 02/14/17 23:00 66 02/14/17 22:00 70 02/14/17 21:00 66 02/14/17 20:00 80 02/14/17 20:00 97.6 65 18 141/83 98 02/14/17 19:00 64 02/14/17 18:26 68 02/14/17 17:49 60 02/14/17 16:02 72 02/14/17 15:37 98.9 66 17 141/82 98 02/14/17 15:00 60 02/14/17 14:44 64 02/14/17 13:00 66 02/14/17 12:00 64 02/14/17 11:15 98.8 73 17 130/73 97 02/14/17 11:00 73 02/14/17 10:00 80 02/14/17 10:00 138/83 02/14/17 09:00 70 02/14/17 08:00 66 I/O 02/14/17 02/14/17 02/14/17 02/15/17 02/15/17 02/15/17 07:00 15:00 23:00 07:00 15:00 23:00 Intake Total 700 ml 1019 ml 240 ml Output Total 400 ml Balance 700 ml 619 ml 240 ml Intake Oral 700 ml 540 ml 240 ml IV Total 0 ml 479 ml Output Urine Total 400 ml # Voids 4 1 # Bowel Movements 0 0 Result Diagram: 02/15/1741902/15/17419 Imaging Last Impressions Shoulder X-Ray 02/14/17 0000 Signed Impressions: Service Date/Time: Tuesday, February 14, 2017 14:13 - CONCLUSION: Negative for acute process. Cheng Larios MD FACR Head CT 02/13/17 0000 Signed Impressions: Service Date/Time: Monday, February 13, 2017 00:00 - CONCLUSION: Normal examination. Panfilo Amato Jr., MD Chest X-Ray 02/13/17 0000 Signed Impressions: Service Date/Time: Monday, February 13, 2017 03:02 - CONCLUSION: Normal examination. Panfilo Amato Jr., MD Objective Remarks GENERAL: Middle-aged AA male in no acute distress, well nourished, well developed. HEENT: PERRLA, EOMI. No scleral icterus or conjunctival pallor. No lid lag or facial droop. CARDIOVASCULAR: Regular rate and rhythm. No obvious murmurs to auscultation. No chest tenderness to palpation. RESPIRATORY: No obvious rhonchi or wheezing. Clear to auscultation. Breath sounds equal bilaterally. GASTROINTESTINAL: Abdomen soft, non-tender, nondistended. BS normal. MUSCULOSKELETAL: BL shoulder pain, decreased ROM bilateral shoulders. Extremities without clubbing, cyanosis, or edema. No obvious deformities. NEUROLOGICAL: Awake, alert. No focal neurologic deficits. Moving both upper and lower extremities spontaneously. A/P Problem List: (1) Elevated troponin ICD Code: R74.8 Status: Acute (2) Rhabdomyolysis ICD Code: M62.82 Status: Acute (3) VALERIE (acute kidney injury) ICD Code: N17.9 Status: Acute (4) Substance abuse ICD Code: F19.10 Status: Acute Assessment and Plan Elevated Trop: Trop 0.72, likely related to drug abuse, unlikely to be secondary to cardiac disease. Admit to [facility], telemetry, check serial trop. No c/o chest pain. Ativan prn if needed. Consult cardiology seen by Dr Clark appreciate recommendations. 2D ECHO normal. Cleared by cardiology for DC Rhabdomyolysis: Likely related to drug abuse/dehydration. CPK 1248 on admission however [place] [address]. Trending down. Received IVF for hydration. Check serial CPK for trend. Troponins trending up, however CKMB ration is normal, likely replated to rhabdo, cardiology evaluated the patient and cleared for DC form cardio standpoint. Bilateral shoulder pain, decreased ROM will do X rays, reciewed X rauy no acute findings. Pain related to rhabdo VALERIE: Creatinine 1.80 on admission, no previous labs for comparison. U/A no signs of infection. IVF for hydration, repeat labs in am. Kidney indices improved. ?Substance Abuse: Pt uncooperative w/ questions, did admit to smoking unknown drug [employer]. Urine Drug Screen + marijuana. Ativan prn. Patient says she is using MJ at times. Denies any other illicit drug use, EtOH use. DVT Prophylaxis: SCD/Teds. Case management for d/c planning as needed Discussed with the patient, nurse Problem Qualifiers (1) Rhabdomyolysis: Qualified Code: M62.82 - Non-traumatic rhabdomyolysis Vy Shah MD Feb 15, 2017 07:15
[2017-02-15 07:19] LABS: CKMB 20.5 NG/ML (0.5-3.6)
[2017-02-15] MEDS ORDERED: OXYC1CAP PO (08:23)
--- NOTE | 2017-02-15 08:23 | HHI.DS ---
Discharge Summary Admission Date Feb 13, 2017 at 05:08 Discharge Date: Feb 15, 2017 Admitting Diagnosis (1) Elevated troponin ICD Code: R74.8 Diagnosis: Principal (2) Rhabdomyolysis ICD Code: M62.82 Diagnosis: Principal (3) VALERIE (acute kidney injury) ICD Code: N17.9 Diagnosis: Principal (4) Substance abuse ICD Code: F19.10 Diagnosis: Principal Procedures None Brief History - From Admission This is a 41-year-old male with no reported PMH was brought to the ER by EMS under Police Custody after becoming unresponsive while in [facility]. Per report, Police called as pt running into traffic, admitted to smoking unknown substance at approx 2200, was arrested and taken to [facility] at that time. While in [facility], pt had become unresponsive. Upon arrival, noted to be awake and alert, HR 150's, BP 136/71, O2 sat 99% on RA, Afebrile. Pt not cooperating with questions. WBC 30.5. Creatinine 1.81, no previous labs for comparison. CPK 1248. Troponin 0.72. EKG with no acute ischemia. CXR with no acute findings. CT Head negative. CBC/BMP: 02/15/17 0420 02/15/17 0420 Significant Findings Laboratory Tests Test 02/13/17 02/13/17 02/13/17 02/13/17 02:30 06:21 08:11 15:11 White Blood Count 30.5 TH/MM3 (4.0-11.0) Neutrophils (%) (Auto) 91.6 % (16.0-70.0) Lymphocytes (%) (Auto) 2.1 % (9.0-44.0) Neutrophils # (Auto) 28.0 TH/MM3 (1.8-7.7) Lymphocytes # (Auto) 0.6 TH/MM3 (1.0-4.8) Monocytes # (Auto) 1.6 TH/MM3 (0-0.9) Neutrophils % (Manual) 91 % (16-70) Lymphocytes % 4 % (9-44) Neutrophils # (Manual) 28.7 TH/MM3 (1.8-7.7) Metamyelocytes 2 % (0-1) Nucleated Red Blood Cells 1 /100 WBC (0-0) Carbon Dioxide Level 20.6 MEQ/L (21.0-32.0) Blood Urea Nitrogen 19 MG/DL (7-18) Creatinine 1.81 MG/DL (0.60-1.30) Estimat Glomerular Filtration 50 ML/MIN (>89) Rate Total Creatine Kinase 1248 U/L 02639 U/L 79387 U/L (39-308) (39-308) (39-308) Creatine Kinase MB 8.4 NG/ML 182.2 NG/ML 196.8 NG/ML (0.5-3.6) (0.5-3.6) (0.5-3.6) Troponin I 0.72 NG/ML 1.31 NG/ML 0.91 NG/ML (0.02-0.05) (0.02-0.05) (0.02-0.05) Urine Protein 30 mg/dL (NEG-TRACE) Urine Occult Blood LARGE (NEG) Urine Mucus FEW /lpf (OCC) Urine Cannabinoids Screen POS (NEG) Test 02/14/17 02/15/17 04:43 04:20 White Blood Count 13.1 TH/MM3 11.4 TH/MM3 (4.0-11.0) (4.0-11.0) Red Blood Count 4.23 MIL/MM3 3.96 MIL/MM3 (4.50-5.90) (4.50-5.90) Hemoglobin 12.9 GM/DL 11.8 GM/DL (13.0-17.0) (13.0-17.0) Hematocrit 38.2 % 36.6 % (39.0-51.0) (39.0-51.0) Monocytes (%) (Auto) 9.9 % (0.0-8.0) 9.5 % (0.0-8.0) Eosinophils (%) (Auto) 5.5 % (0.0-4.0) 6.5 % (0.0-4.0) Neutrophils # (Auto) 8.6 TH/MM3 (1.8-7.7) Monocytes # (Auto) 1.3 TH/MM3 1.1 TH/MM3 (0-0.9) (0-0.9) Eosinophils # (Auto) 0.7 TH/MM3 0.7 TH/MM3 (0-0.4) (0-0.4) Potassium Level 3.4 MEQ/L (3.5-5.1) Calcium Level 8.0 MG/DL 8.3 MG/DL (8.5-10.1) (8.5-10.1) Aspartate Amino Transf 347 U/L (15-37) (AST/SGOT) Alanine Aminotransferase 121 U/L (12-78) (ALT/SGPT) Total Creatine Kinase 37006 U/L 8466 U/L (39-308) (39-308) Creatine Kinase MB 87.7 NG/ML 20.5 NG/ML (0.5-3.6) (0.5-3.6) Total Protein 6.2 GM/DL (6.4-8.2) Albumin 3.1 GM/DL (3.4-5.0) Imaging Last Impressions Shoulder X-Ray 02/14/17 0000 Signed Impressions: Service Date/Time: Tuesday, February 14, 2017 14:13 - CONCLUSION: Negative for acute process. Cheng Larios MD FACR Head CT 02/13/17 0000 Signed Impressions: Service Date/Time: Monday, February 13, 2017 00:00 - CONCLUSION: Normal examination. Panfilo Amato Jr., MD Chest X-Ray 02/13/17 0000 Signed Impressions: Service Date/Time: Monday, February 13, 2017 03:02 - CONCLUSION: Normal examination. Panfilo Amato Jr., MD PE at Discharge GENERAL: Middle-aged AA male in no acute distress, well nourished, well developed. HEENT: PERRLA, EOMI. No scleral icterus or conjunctival pallor. No lid lag or facial droop. CARDIOVASCULAR: Regular rate and rhythm. No obvious murmurs to auscultation. No chest tenderness to palpation. RESPIRATORY: No obvious rhonchi or wheezing. Clear to auscultation. Breath sounds equal bilaterally. GASTROINTESTINAL: Abdomen soft, non-tender, nondistended. BS normal. MUSCULOSKELETAL: BL shoulder pain, decreased ROM bilateral shoulders. Extremities without clubbing, cyanosis, or edema. No obvious deformities. NEUROLOGICAL: Awake, alert. No focal neurologic deficits. Moving both upper and lower extremities spontaneously. Hospital Course Elevated Trop: Trop 0.72, likely related to drug abuse, unlikely to be secondary to cardiac disease. Admit to [facility], telemetry, check serial trop. No c/o chest pain. Ativan prn if needed. Consult cardiology seen by Dr Clark appreciate recommendations. 2D ECHO normal. Cleared by cardiology for DC Rhabdomyolysis: Likely related to drug abuse/dehydration. CPK 1248 on admission however [place] [address]. Trending down. Received IVF for hydration. Check serial CPK for trend. Troponins trending up, however CKMB ration is normal, likely replated to rhabdo, cardiology evaluated the patient and cleared for DC form cardio standpoint. Bilateral shoulder pain, decreased ROM will do X rays, reciewed X rauy no acute findings. Pain related to rhabdo VALERIE: Creatinine 1.80 on admission, no previous labs for comparison. U/A no signs of infection. IVF for hydration, repeat labs in am. Kidney indices improved. 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 Urine Drug Screen + marijuana. Ativan prn. Patient says she is using MJ at times. Denies any other illicit drug use, EtOH use. DVT Prophylaxis: SCD/Teds. Case management for d/c planning as needed Discussed with the patient, nurse Patient improved. Discharge home instable condition , adviced to continue aggressive PO hydration. Kidney function back to normal. CPK improving. To follow up as OP with PCP. Pt Condition on Discharge: Stable Discharge Disposition: Discharge Home Discharge Time: <= 30 minutes Discharge Instructions DIET: Follow Instructions for: As Tolerated, No Restrictions Additional Diet Instructions: drink plenty of fluids, stay hydrated Activities you can perform: Regular-No Restrictions Other Activity Instructions: Avoid strenuous exercise Follow up Referrals: PCP Follow-up - 3-5 Days with Dinah Dumont MD New Medications: Oxycodone (Oxycodone) 5 Mg Cap 5 MG PO Q8H PRN PAIN #6 Ref 0 Vy Joy MD Feb 15, 2017 08:23
[2017-02-15] MEDS ORDERED: SODIUM CHLOR 0.9% 1000 ML INJ 1,000 ML IV ONE (08:30)
[2017-02-15] MEDS: SODIUM CHLORIDE 0.9% FLUSH 10 ML FLUSH IV FLUSH SCH (08:31)
[2017-02-15 12:03] LABS: CKMB 15.1 NG/ML (0.5-3.6)
--- NOTE | 2017-02-15 14:34 | PD.CARD.PN ---
Subjective Subjective Remarks No CP or SOB, feels better Objective Vital Signs / I&O Vital Signs Date Time Temp Pulse Resp B/P Pulse Ox O2 Delivery O2 Flow Rate FiO2 02/15/17 12:20 70 02/15/17 12:07 65 02/15/17 11:07 98.0 70 17 112/89 97 02/15/17 11:07 64 02/15/17 11:00 67 02/15/17 10:16 67 02/15/17 10:09 69 02/15/17 09:00 63 02/15/17 08:00 60 02/15/17 08:00 98.1 65 18 126/93 98 02/15/17 07:00 65 02/15/17 06:00 64 02/15/17 05:43 16 02/15/17 05:00 84 02/15/17 04:00 97.3 64 18 121/75 98 02/15/17 04:00 69 02/15/17 03:00 66 02/15/17 02:00 66 02/15/17 01:00 62 02/15/17 00:00 98.6 66 16 134/94 98 02/15/17 00:00 62 02/14/17 23:00 66 02/14/17 22:00 70 02/14/17 21:00 66 02/14/17 20:00 80 02/14/17 20:00 97.6 65 18 141/83 98 02/14/17 19:00 64 02/14/17 18:26 68 02/14/17 17:49 60 02/14/17 16:02 72 02/14/17 15:37 98.9 66 17 141/82 98 02/14/17 15:00 60 02/14/17 14:44 64 I/O 02/14/17 02/14/17 02/14/17 02/15/17 02/15/17 02/15/17 07:00 15:00 23:00 07:00 15:00 23:00 Intake Total 700 ml 1019 ml 240 ml 120 ml Output Total 400 ml 500 ml Balance 700 ml 619 ml 240 ml -380 ml Intake Oral 700 ml 540 ml 240 ml 120 ml IV Total 0 ml 479 ml Output Urine Total 400 ml 500 ml # Voids 4 1 # Bowel Movements 0 0 Physical Exam GENERAL: SKIN: Warm and dry. HEAD: Normocephalic. EYES: No scleral icterus. No injection or drainage. NECK: Supple, trachea midline. No JVD or lymphadenopathy. CARDIOVASCULAR: Regular rate and rhythm without murmurs, gallops, or rubs. RESPIRATORY: Breath sounds equal bilaterally. No accessory muscle use. GASTROINTESTINAL: Abdomen soft, non-tender, nondistended. MUSCULOSKELETAL: No cyanosis, or edema. BACK: Nontender without obvious deformity. No CVA tenderness. Laboratory Laboratory Tests Test 02/15/17 02/15/17 04:20 10:42 White Blood Count 11.4 TH/MM3 Red Blood Count 3.96 MIL/MM3 Hemoglobin 11.8 GM/DL Hematocrit 36.6 % Mean Corpuscular Volume 92.4 FL Mean Corpuscular Hemoglobin 29.7 PG Mean Corpuscular Hemoglobin 32.1 % Concent Red Cell Distribution Width 13.9 % Platelet Count 231 TH/MM3 Mean Platelet Volume 8.5 FL Neutrophils (%) (Auto) 60.9 % Lymphocytes (%) (Auto) 22.6 % Monocytes (%) (Auto) 9.5 % Eosinophils (%) (Auto) 6.5 % Basophils (%) (Auto) 0.5 % Neutrophils # (Auto) 7.0 TH/MM3 Lymphocytes # (Auto) 2.6 TH/MM3 Monocytes # (Auto) 1.1 TH/MM3 Eosinophils # (Auto) 0.7 TH/MM3 Basophils # (Auto) 0.1 TH/MM3 CBC Comment DIFF FINAL Differential Comment Sodium Level 144 MEQ/L Potassium Level 4.0 MEQ/L Chloride Level 107 MEQ/L Carbon Dioxide Level 29.0 MEQ/L Anion Gap 8 MEQ/L Blood Urea Nitrogen 10 MG/DL Creatinine 0.89 MG/DL Estimat Glomerular Filtration 114 ML/MIN Rate Random Glucose 95 MG/DL Calcium Level 8.3 MG/DL Total Creatine Kinase 8466 U/L 7789 U/L Creatine Kinase MB 20.5 NG/ML 15.1 NG/ML Creatine Kinase MB % 0.2 % 0.2 % Imaging Last Impressions Shoulder X-Ray 02/14/17 0000 Signed Impressions: Service Date/Time: Tuesday, February 14, 2017 14:13 - CONCLUSION: Negative for acute process. Cheng Larios MD FACR Head CT 02/13/17 0000 Signed Impressions: Service Date/Time: Monday, February 13, 2017 00:00 - CONCLUSION: Normal examination. Panfilo Amato Jr., MD Chest X-Ray 02/13/17 0000 Signed Impressions: Service Date/Time: Monday, February 13, 2017 03:02 - CONCLUSION: Normal examination. Panfilo Amato Jr., MD Assessment and Plan Problem List: (1) Substance abuse (2) Rhabdomyolysis (3) VALERIE (acute kidney injury) (4) Elevated troponin (5) Chest pain Assessment and Plan No recurrent CP or SOB. No new cardiac issues. Rhythm stable. Echo w nl LV systolic function. Discharge today. F/u w PCP. Problem Qualifiers (1) Rhabdomyolysis: Qualified Code: M62.82 - Non-traumatic rhabdomyolysis Andrew Hoffman MD Feb 15, 2017 14:34
== END 2017-02-15 12:35 | disposition home or self-care (01) | DRG 558 ==
LOC: NEPE 02:02 → NEDA 05:08 → HCIS 08:40
PROVIDERS: ADMIT Hospitalist; ATTEND Hospitalist
DX: M62.82 Rhabdomyolysis (principal); N17.9 Acute kidney failure, unspecified; E86.0 Dehydration; F19.10 Other psychoactive substance abuse, uncomplicated; M25.512 Pain in left shoulder; M25.511 Pain in right shoulder; F17.200 Nicotine dependence, unspecified, uncomplicated; R07.89 Other chest pain
CPT/HCPCS: 70450; 71010; 73030; 80048; 80053; 80307; 81001; 82550; 82552; 84484; 85007; 85025; 85027; 93005; 93306; 96361; 96374; J1170; J2270; J2405; J7030